=== PATIENT | female | born 1970 ===

== ENCOUNTER 2019-10-12 07:44 | Day surgery (SDC) | payer OTHER ==
[2019-10-12] MEDS ORDERED: PERCOCET 5-3251 EACH PO (13:49)
== END 2019-10-12 17:20 | disposition home or self-care (01) ==
LOC: CIR.AMB 07:44 → ADM 12:15 → CIR.AMB 12:15
PROVIDERS: ATTEND Obstetrics & Gynecology Gynecology
DX: D27.1 Benign neoplasm of left ovary (principal); Z20.828 Contact with and (suspected) exposure to other viral communicable diseases